=== PATIENT | male | born 1970 | race Hispanic/Latino ===

== ENCOUNTER → 2020-10-15 | Outpatient (CLI) | payer SELFPAY | LOC: M LABSMTC 11:01 | PROVIDERS: ATTEND Pediatrics | DX: Z20.828 Contact with and (suspected) exposure to other viral communicable diseases (principal) ==

== ENCOUNTER 2022-07-19 10:28 | Emergency (ER) | payer BC, OTHER ==
[2022-07-19] MEDS ORDERED: PSEUDOEPHEDRINE 30 MG TAB PO ONE (11:05)
[2022-07-19] MEDS ORDERED: PHENYLEPHRINE 10MG/ML 1ML VIAL (J2370 PER 1) XX ONE (12:00)
[2022-07-19 13:37] LABS: VENOUS BASE EXCESS -12.8 (-2.0-2.0); VENOUS HCO3 17.6 MEQ/L (23.0-27.0); VENOUS O2 SATURATION 90.7 % (60.0-80.0); VENOUS PARTIAL PRESSURE CO2 65.1 mmHg (38.0-50.0); VENOUS PARTIAL PRESSURE O2 78.3 mmHg (30.0-50.0); VENOUS PH 7.051 UNITS (7.330-7.430); VENOUS STANDARD HCO3 14.3 MEQ/L; VENOUS TOTAL CO2 19.6 MEQ/L (24.0-28.0)
[2022-07-19 14:45] VITALS: BP 133/83
== END 2022-07-19 15:12 | disposition home or self-care (01) ==
LOC: M ED 10:28
DX: N48.33 Priapism, drug-induced (principal)
CPT/HCPCS: 36415; 82803; 93041; 94760; 99285; J2370

== ENCOUNTER → 2022-12-16 | Outpatient (CLI) | payer BC, OTHER | LOC: M RAD 17:02 | PROVIDERS: ATTEND Physician Assistant Medical | DX: R06.02 Shortness of breath (principal) ==

== ENCOUNTER → 2023-01-21 | Outpatient (REF) | payer BC, OTHER ==
[2023-01-21 19:14] LABS: RSV AMPLIFICATION NEGATIVE (NEGATIVE)
== END ==
LOC: M LAB REF 18:00
PROVIDERS: ATTEND Physician Assistant
DX: R05.9 Cough, unspecified (principal)

== ENCOUNTER 2023-03-17 00:58 | Inpatient (IN) | payer BC, OTHER ==
[2023-03-17] VITALS (18 sets, daily range): BP systolic 120–162; BP diastolic 66–95
[~2023-03-17] VITALS: Ht 154.9 cm; Wt 65.1 kg
[2023-03-17 02:13] LABS: BASO % 0.2 % (0.0-1.0); EOS # 0.1 10^3/uL (0.0-0.5); EOS % 1.1 % (0.0-3.0); LYMPH # 2.3 10^3/uL (1.5-5.0); LYMPH % 28.7 % (24.0-44.0); MEAN CORPUSCULAR HEMOGLOBIN 13.8 pg (27.0-33.0); MEAN CORPUSCULAR VOLUME 59.8 fl (80.0-96.0); MONO # 0.5 10^3/uL (0.0-0.8); MONO % 6.1 % (2.0-8.0); NEUTROPHILS # 5.1 10^3/uL (1.5-8.5); NEUTROPHILS % 63.5 % (36.0-66.0); PLATELET COUNT, AUTOMATED 351 10^3/uL (150-450); RED BLOOD COUNT 2.54 10^6/uL (4.30-6.10); WHITE BLOOD COUNT 8.1 10^3/uL (4.0-10.0)
[2023-03-17 02:17] LABS: HEMATOCRIT 15.2 % (42.0-52.0); HEMOGLOBIN 3.5 g/dl (13.5-17.5)
[2023-03-17 02:19] LABS: ALBUMIN 3.5 G/DL (3.2-5.2); ALKALINE PHOSPHATASE 63 U/L (46-116); ALT/SGPT 17 U/L (7.0-40); AST/SGOT 23 U/L (<34); BILIRUBIN,TOTAL 0.5 MG/DL (0.3-1.2); BLOOD UREA NITROGEN 15 MG/DL (9-23); CALCIUM LEVEL 8.2 MG/DL (8.5-10.1); CARBON DIOXIDE LEVEL 24 MMOL/L (20-31); CHLORIDE LEVEL 107 MMOL/L (98-107); GLOMERULAR FILTRATION RATE > 60.0 (>56); GLUCOSE, FASTING 100 MG/DL (60-100); POTASSIUM SERUM 4.7 MMOL/L (3.5-5.1); SODIUM LEVEL 138 MMOL/L (136-145); TOTAL PROTEIN 6.2 G/DL (5.7-8.2)
[2023-03-17 03:45] LABS: BASO % 0.1 % (0.0-1.0); EOS # 0.1 10^3/uL (0.0-0.5); EOS % 1.6 % (0.0-3.0); LYMPH # 2.2 10^3/uL (1.5-5.0); MEAN CORPUSCULAR HEMOGLOBIN 13.6 pg (27.0-33.0); MEAN CORPUSCULAR HGB CONC 22.9 g/dl (32.0-36.5); MEAN CORPUSCULAR VOLUME 59.5 fl (80.0-96.0); MONO # 0.5 10^3/uL (0.0-0.8); MONO % 6.7 % (2.0-8.0); NEUTROPHILS # 4.2 10^3/uL (1.5-8.5); NEUTROPHILS % 59.9 % (36.0-66.0); PLATELET COUNT, AUTOMATED 330 10^3/uL (150-450); RED BLOOD COUNT 2.42 10^6/uL (4.30-6.10); WHITE BLOOD COUNT 7.1 10^3/uL (4.0-10.0)
[2023-03-17 03:50] LABS: HEMATOCRIT 14.4 % (42.0-52.0); HEMOGLOBIN 3.3 g/dl (13.5-17.5); INR 1.05; PROTHROMBIN TIME 13.9 SECONDS (12.5-14.5)
[2023-03-17] MEDS ORDERED: ISOVUE-370 76% 100ML VIAL As Ordered ONE (03:56)
[2023-03-17 04:03] LABS: CK-MB VALUE MASS < 1.0 NG/ML (<3.6)
[2023-03-17 04:05] LABS: BLOOD UREA NITROGEN 15 MG/DL (9-23); CALCIUM LEVEL 7.7 MG/DL (8.5-10.1); CARBON DIOXIDE LEVEL 23 MMOL/L (20-31); CHLORIDE LEVEL 108 MMOL/L (98-107); CPK CREATINE PHOSPHOKINASE 75 U/L (46-171); CREATININE FOR GFR 0.78 MG/DL (0.70-1.30); GLOMERULAR FILTRATION RATE > 60.0 (>56); GLUCOSE, FASTING 89 MG/DL (60-100); MB/CK RELATIVE INDEX 1.33 (< OR =4); POTASSIUM SERUM 4.1 MMOL/L (3.5-5.1); SODIUM LEVEL 139 MMOL/L (136-145)
[2023-03-17 05:53] LABS: LIPASE 64 U/L (12-53)
[2023-03-17] MEDS ORDERED: GLUCOSE 4GM CHEW TABLET PO PRN (07:25)
[2023-03-17] MEDS ORDERED: D5W/0.45% SODIUM CHLORIDE 1,000 ML IV SCH (07:25)
[2023-03-17] MEDS ORDERED: GLUCAGON INJ 1MG VIAL SC PRN (07:25)
[2023-03-17] MEDS ORDERED: DEXTROSE 50% 50ML SYRINGE IV PRN (07:25)
[2023-03-17] MEDS ORDERED: IBUP200C25 PO (08:13)
[2023-03-17 08:15] LABS: IRON (FE) 7 UG/DL (65-175); PERCENT SATURATION 1.9 % (19.7-50.0); TOTAL IRON BINDING CAPACITY 370 UG/DL (250-425)
[2023-03-17] MEDS ORDERED: HOME MED LIST COMPLETE! XX SCH (08:15)
[2023-03-17 09:03] LABS: CK-MB VALUE MASS < 1.0 NG/ML (<3.6)
[2023-03-17 09:05] LABS: CPK CREATINE PHOSPHOKINASE 62 U/L (46-171); MB/CK RELATIVE INDEX 1.61 (< OR =4)
[2023-03-17 12:13] LABS: HEMATOCRIT 23.8 % (42.0-52.0); HEMOGLOBIN 6.3 g/dl (13.5-17.5)
[2023-03-17] MEDS ORDERED: ONDANSETRON 4MG 2ML VIAL IV PRN (12:35)
[2023-03-17] MEDS ORDERED: ACETAMINOPHEN TAB 650MG DOSE (2X325MG) PO PRN (12:35)
[2023-03-17 18:42] LABS: HEMATOCRIT 28.7 % (42.0-52.0)
[2023-03-17 18:47] LABS: HEMOGLOBIN 8.3 g/dl (13.5-17.5)
[2023-03-17] MEDS ORDERED: diphenhydrAMINE 50MG/ML VIAL IV STA (19:09)
[2023-03-17 21:56] LABS: HEMOGLOBIN 8.3 g/dl (13.5-17.5)
[2023-03-18] VITALS (9 sets, daily range): BP systolic 111–137; BP diastolic 64–71
[2023-03-18 06:19] LABS: HEMATOCRIT 29.5 % (42.0-52.0); HEMOGLOBIN 8.5 g/dl (13.5-17.5)
[2023-03-18 06:40] LABS: BLOOD UREA NITROGEN 7 MG/DL (9-23); CALCIUM LEVEL 7.9 MG/DL (8.5-10.1); CARBON DIOXIDE LEVEL 24 MMOL/L (20-31); CHLORIDE LEVEL 109 MMOL/L (98-107); CREATININE FOR GFR 0.91 MG/DL (0.70-1.30); GLOMERULAR FILTRATION RATE > 60.0 (>56); GLUCOSE, FASTING 91 MG/DL (60-100); POTASSIUM SERUM 4.1 MMOL/L (3.5-5.1); SODIUM LEVEL 140 MMOL/L (136-145)
[2023-03-18 12:14] LABS: HEMATOCRIT 30.8 % (42.0-52.0); HEMOGLOBIN 8.6 g/dl (13.5-17.5)
[2023-03-18] MEDS ORDERED: BISACODYL 5MG TAB PO ONE (16:00)
[2023-03-18] MEDS ORDERED: GOLYTELY SOLN 4000 ML BTL PO ONE (18:00)
[2023-03-18 18:24] LABS: HEMATOCRIT 34.3 % (42.0-52.0); HEMOGLOBIN 9.4 g/dl (13.5-17.5)
[2023-03-18 23:51] LABS: HEMATOCRIT 33.2 % (42.0-52.0); HEMOGLOBIN 9.2 g/dl (13.5-17.5)
[2023-03-19 01:01] VITALS: BP 131/67
[2023-03-19 04:28] VITALS: BP 139/65
[2023-03-19] MEDS ORDERED: GOLYTELY SOLN 4000 ML BTL PO ONE (05:00)
[2023-03-19 06:10] LABS: HEMATOCRIT 32.5 % (42.0-52.0)
[2023-03-19 06:35] VITALS: BP 127/76
[2023-03-19 06:38] LABS: BLOOD UREA NITROGEN 7 MG/DL (9-23); CALCIUM LEVEL 8.7 MG/DL (8.5-10.1); CARBON DIOXIDE LEVEL 25 MMOL/L (20-31); CHLORIDE LEVEL 109 MMOL/L (98-107); CREATININE FOR GFR 0.91 MG/DL (0.70-1.30); GLOMERULAR FILTRATION RATE > 60.0 (>56); GLUCOSE, FASTING 84 MG/DL (60-100); POTASSIUM SERUM 3.9 MMOL/L (3.5-5.1); SODIUM LEVEL 141 MMOL/L (136-145)
[2023-03-19 07:55] VITALS: BP 145/63
[2023-03-19 12:20] LABS: HEMOGLOBIN 9.2 g/dl (13.5-17.5)
[2023-03-19] MEDS ORDERED: LIDOCAINE 2% 100MG/5ML SDV (FOR ANES.) As Ordered ONE (12:30)
[2023-03-19] MEDS ORDERED: propofoL 200 MG/20 ML VIAL As Ordered ONE ×2 (12:30→13:01)
[2023-03-19] MEDS ORDERED: fentaNYL 100 MCG/2 ML INJECTION As Ordered ONE (12:33)
[2023-03-19 14:00] VITALS: BP 138/74
[2023-03-19 14:32] VITALS: BP 143/79
== END 2023-03-19 16:16 | disposition home or self-care (01) | DRG 253 ==
LOC: M ED 00:58 → M ED INP 07:17 → M PCU 15:20
PROVIDERS: ADMIT General Practice; ATTEND General Practice
PROC: 30233N1 Transfusion of Nonautologous Red Blood Cells into Peripheral Vein, Percutaneous Approach (ICD-10-PCS; 2023-03-17)
PROC: 0DJD8ZZ Inspection of Lower Intestinal Tract, Via Natural or Artificial Opening Endoscopic (ICD-10-PCS; 2023-03-19)
PROC: 0DJ08ZZ Inspection of Upper Intestinal Tract, Via Natural or Artificial Opening Endoscopic (ICD-10-PCS; principal; 2023-03-19 13:45)
DX: K92.2 Gastrointestinal hemorrhage, unspecified (principal); R63.4 Abnormal weight loss; D62 Acute posthemorrhagic anemia; K64.2 Third degree hemorrhoids

== ENCOUNTER → 2023-03-24 | Outpatient (REF) | payer OTHER, BC ==
[~2023-03-24] MED LIST: IBUP200C25 PO
[2023-03-24 17:25] LABS: BASO # 0.1 10^3/uL (0.0-0.2); BASO % 0.7 % (0.0-1.0); EOS # 0.1 10^3/uL (0.0-0.5); EOS % 1.6 % (0.0-3.0); HEMATOCRIT 37.1 % (42.0-52.0); HEMOGLOBIN 10.1 g/dl (13.5-17.5); LYMPH # 1.7 10^3/uL (1.5-5.0); LYMPH % 23.5 % (24.0-44.0); MEAN CORPUSCULAR HEMOGLOBIN 20.5 pg (27.0-33.0); MEAN CORPUSCULAR HGB CONC 27.2 g/dl (32.0-36.5); MEAN CORPUSCULAR VOLUME 75.3 fl (80.0-96.0); MONO # 0.4 10^3/uL (0.0-0.8); MONO % 5.6 % (2.0-8.0); NEUTROPHILS % 68.2 % (36.0-66.0); PLATELET COUNT, AUTOMATED 354 10^3/uL (150-450); RED BLOOD COUNT 4.93 10^6/uL (4.30-6.10); WHITE BLOOD COUNT 7.3 10^3/uL (4.0-10.0)
[2023-03-24 17:46] LABS: TOTAL IRON BINDING CAPACITY 397 UG/DL (250-425)
[2023-03-24 17:48] LABS: ALBUMIN 3.7 G/DL (3.2-5.2); ALKALINE PHOSPHATASE 70 U/L (46-116); ALT/SGPT 65 U/L (7.0-40); AST/SGOT 57 U/L (<34); BILIRUBIN,TOTAL 0.9 MG/DL (0.3-1.2); BLOOD UREA NITROGEN 15 MG/DL (9-23); CALCIUM LEVEL 8.9 MG/DL (8.5-10.1); CARBON DIOXIDE LEVEL 25 MMOL/L (20-31); CHLORIDE LEVEL 108 MMOL/L (98-107); CHOLESTEROL LEVEL 117 MG/DL (<200); CHOLESTEROL RISK RATIO 3.15 (<5); CREATININE FOR GFR 0.81 MG/DL (0.70-1.30); GLOMERULAR FILTRATION RATE > 60.0 (>56); GLUCOSE, FASTING 68 MG/DL (60-100); HDL CHOLESTEROL 37.1 MG/DL (>40); IRON (FE) 42 UG/DL (65-175); LDL CHOLESTEROL 65.5 MG/DL (<100); NON-HDL-C 79.9 MG/DL; PERCENT SATURATION 10.6 % (19.7-50.0); POTASSIUM SERUM 4.6 MMOL/L (3.5-5.1); SODIUM LEVEL 139 MMOL/L (136-145); TOTAL PROTEIN 6.9 G/DL (5.7-8.2); TRIGLYCERIDES LEVEL 72 MG/DL (<150)
[2023-03-24 17:49] LABS: FERRITIN 14.8 NG/ML (10.5-307.3)
[2023-03-24 20:32] LABS: ANISOCYTOSIS 4+
[2023-03-24 20:33] LABS: MICROCYTOSIS 3+
[2023-03-24 20:34] LABS: PLATELET ESTIMATE NORMAL (NORMAL)
== END ==
LOC: M LAB REF 16:15
PROVIDERS: ATTEND Physician Assistant
DX: Z13.220 Encounter for screening for lipoid disorders (principal); Z13.1 Encounter for screening for diabetes mellitus

== ENCOUNTER → 2023-04-16 | Outpatient (REF) | payer OTHER, BC ==
[2023-04-16 17:51] LABS: BASO % 0.6 % (0.0-1.0); EOS # 0.3 10^3/uL (0.0-0.5); HEMATOCRIT 36.8 % (42.0-52.0); HEMOGLOBIN 10.6 g/dl (13.5-17.5); LYMPH # 1.8 10^3/uL (1.5-5.0); MEAN CORPUSCULAR HEMOGLOBIN 22.8 pg (27.0-33.0); MEAN CORPUSCULAR HGB CONC 28.8 g/dl (32.0-36.5); MEAN CORPUSCULAR VOLUME 79.3 fl (80.0-96.0); MONO # 0.5 10^3/uL (0.0-0.8); MONO % 8.3 % (2.0-8.0); NEUTROPHILS # 3.6 10^3/uL (1.5-8.5); NEUTROPHILS % 57.1 % (36.0-66.0); PLATELET COUNT, AUTOMATED 387 10^3/uL (150-450); RED BLOOD COUNT 4.64 10^6/uL (4.30-6.10); WHITE BLOOD COUNT 6.3 10^3/uL (4.0-10.0)
[2023-04-16 18:15] LABS: FERRITIN 5.5 NG/ML (10.5-307.3)
== END ==
LOC: M LAB REF 16:25
PROVIDERS: ATTEND Physician Assistant
DX: D50.9 Iron deficiency anemia, unspecified (principal)

== ENCOUNTER → 2023-04-30 | Outpatient (CLI) | payer BC, OTHER | LOC: M CARPUL 07:52 | PROVIDERS: ATTEND Physician Assistant | DX: I51.7 Cardiomegaly (principal); R94.31 Abnormal electrocardiogram [ECG] [EKG] ==

== ENCOUNTER → 2023-05-13 | Outpatient (REF) | payer BC, OTHER ==
[2023-05-13 18:03] LABS: BASO % 0.6 % (0.0-1.0); EOS # 0.1 10^3/uL (0.0-0.5); EOS % 1.9 % (0.0-3.0); HEMATOCRIT 35.5 % (42.0-52.0); HEMOGLOBIN 10.8 g/dl (13.5-17.5); LYMPH # 1.5 10^3/uL (1.5-5.0); LYMPH % 31.3 % (24.0-44.0); MEAN CORPUSCULAR HEMOGLOBIN 26.2 pg (27.0-33.0); MEAN CORPUSCULAR HGB CONC 30.4 g/dl (32.0-36.5); MONO # 0.4 10^3/uL (0.0-0.8); MONO % 7.5 % (2.0-8.0); NEUTROPHILS # 2.7 10^3/uL (1.5-8.5); NEUTROPHILS % 58.5 % (36.0-66.0); PLATELET COUNT, AUTOMATED 381 10^3/uL (150-450); RED BLOOD COUNT 4.13 10^6/uL (4.30-6.10); WHITE BLOOD COUNT 4.7 10^3/uL (4.0-10.0)
[2023-05-13 18:13] LABS: PERCENT SATURATION 7.8 % (19.7-50.0)
[2023-05-13 18:14] LABS: FERRITIN 64.6 NG/ML (10.5-307.3)
== END ==
LOC: M LAB REF 16:20
PROVIDERS: ATTEND Physician Assistant
DX: D50.9 Iron deficiency anemia, unspecified (principal)

== ENCOUNTER → 2023-08-25 | Outpatient (REF) | payer SELFPAY, OTHER ==
[~2023-08-25] MED LIST changes: +FERR325T19 PO
[2023-08-25 19:03] LABS: BASO % 0.7 % (0.0-1.0); EOS # 0.1 10^3/uL (0.0-0.5); EOS % 2.5 % (0.0-3.0); HEMATOCRIT 39.5 % (42.0-52.0); HEMOGLOBIN 13.1 g/dl (13.5-17.5); LYMPH # 2.4 10^3/uL (1.5-5.0); LYMPH % 43.4 % (24.0-44.0); MEAN CORPUSCULAR HEMOGLOBIN 29.5 pg (27.0-33.0); MEAN CORPUSCULAR HGB CONC 33.2 g/dl (32.0-36.5); MONO # 0.6 10^3/uL (0.0-0.8); MONO % 10.5 % (2.0-8.0); NEUTROPHILS # 2.2 10^3/uL (1.5-8.5); NEUTROPHILS % 40.4 % (36.0-66.0); PLATELET COUNT, AUTOMATED 352 10^3/uL (150-450); RED BLOOD COUNT 4.44 10^6/uL (4.30-6.10); WHITE BLOOD COUNT 5.6 10^3/uL (4.0-10.0)
[2023-08-26 02:12] LABS: PERCENT SATURATION 11.5 % (19.7-50.0)
== END ==
LOC: M LAB REF 16:27
PROVIDERS: ATTEND Pediatrics
DX: D50.9 Iron deficiency anemia, unspecified (principal)

== ENCOUNTER → 2023-09-09 | Outpatient (REF) | payer SELFPAY, OTHER ==
[2023-09-09 18:05] LABS: HDL CHOLESTEROL 48.9 MG/DL (>40); LDL CHOLESTEROL 87.1 MG/DL (<100); NON-HDL-C 98.1 MG/DL
[2023-09-09 18:09] LABS: THYROID STIMULATING HORMONE 3.094 uIU/ML (0.55-4.78)
== END ==
LOC: M LAB REF 16:20
PROVIDERS: ATTEND Pediatrics
DX: I34.0 Nonrheumatic mitral (valve) insufficiency (principal); R94.31 Abnormal electrocardiogram [ECG] [EKG]

== ENCOUNTER → 2023-11-21 | Outpatient (CLI) | payer BC, OTHER, SELFPAY | LOC: M CARPUL 09:15 | PROVIDERS: ATTEND Pediatrics | DX: I08.1 Rheumatic disorders of both mitral and tricuspid valves (principal) ==

== ENCOUNTER → 2024-01-12 | Outpatient (REF) | payer SELFPAY, OTHER ==
[2024-01-12 18:57] LABS: BASO % 0.5 % (0.0-1.0); EOS # 0.1 10^3/uL (0.0-0.5); EOS % 1.1 % (0.0-3.0); HEMATOCRIT 34.7 % (42.0-52.0); HEMOGLOBIN 10.7 g/dl (13.5-17.5); LYMPH # 1.2 10^3/uL (1.5-5.0); LYMPH % 17.7 % (24.0-44.0); MEAN CORPUSCULAR HEMOGLOBIN 26.3 pg (27.0-33.0); MEAN CORPUSCULAR HGB CONC 30.8 g/dl (32.0-36.5); MEAN CORPUSCULAR VOLUME 85.3 fl (80.0-96.0); MONO # 0.9 10^3/uL (0.0-0.8); NEUTROPHILS # 4.5 10^3/uL (1.5-8.5); NEUTROPHILS % 67.4 % (36.0-66.0); PLATELET COUNT, AUTOMATED 334 10^3/uL (150-450); RED BLOOD COUNT 4.07 10^6/uL (4.30-6.10); WHITE BLOOD COUNT 6.6 10^3/uL (4.0-10.0)
[2024-01-12 19:30] LABS: PERCENT SATURATION 3.7 % (19.7-50.0)
== END ==
LOC: M LAB REF 17:55
PROVIDERS: ATTEND Pediatrics
DX: D50.9 Iron deficiency anemia, unspecified (principal)

== ENCOUNTER 2024-02-13 05:56 | Day surgery (SDC) | payer BC, SELFPAY ==
[~2024-02-13] VITALS: Ht 152.4 cm; Wt 62.8 kg
[2024-02-13] MEDS ORDERED: LR 1,000 ML IV SCH (06:40)
[2024-02-13] MEDS ORDERED: ePHEDrine SULFATE 25 MG/5 ML(5MG/ML) SYRINGE As Ordered ONE (06:56)
[2024-02-13] MEDS ORDERED: propofoL 200 MG/20 ML VIAL As Ordered ONE (06:56)
[2024-02-13] MEDS ORDERED: SUGAMMADEX SODIUM 500 MG/5 ML VIAL (BRIDION) As Ordered ONE (06:56)
[2024-02-13] MEDS ORDERED: ONDANSETRON 4MG 2ML VIAL As Ordered ONE (06:56)
[2024-02-13] MEDS ORDERED: LIDOCAINE 2% 100MG/5ML SDV (FOR ANES.) As Ordered ONE (06:56)
[2024-02-13] MEDS ORDERED: ROCURONIUM BROMIDE 50MG/5ML VIAL As Ordered ONE (06:56)
[2024-02-13] MEDS ORDERED: MIDAZOLAM INJ 2MG/2ML VIAL As Ordered ONE (06:56)
[2024-02-13] MEDS ORDERED: PHENYLephrine 500MCG 5ML (100MCG/ML) SYRINGE As Ordered ONE (06:56)
[2024-02-13] MEDS ORDERED: fentaNYL 100 MCG/2 ML INJECTION As Ordered ONE (06:57)
[2024-02-13] MEDS: CelecoXIB 400 MG CAP PO ONE (07:32)
[2024-02-13] MEDS: ceFAZolin SOD 2 GM in IV 1 EA IV ONE (07:55)
[2024-02-13] MEDS: metroNIDAZOLE 500 MG in IV 1 EA IV ONE (07:59)
[2024-02-13] MEDS ORDERED: KETOROLAC 60MG 2ML VIAL As Ordered ONE (08:32)
[2024-02-13] MEDS ORDERED: ACETAMINOPHEN 1000MG 100ML IV BAG As Ordered ONE (08:40)
[2024-02-13] MEDS ORDERED: ONDANSETRON 4MG 2ML VIAL IV PRN (09:25)
[2024-02-13] MEDS ORDERED: fentaNYL 100 MCG/2 ML INJECTION IV PRN (09:25)
[2024-02-13] MEDS: oxyCODONE 5MG TAB PO PRN (09:41)
[2024-02-13] MEDS: MORPHINE 2 MG/ML 1ML VIAL IV PRN (09:41)
[2024-02-13 10:45] VITALS: BP 151/97; TEMP 97.1; O2SAT 100
== END 2024-02-13 11:24 | disposition home or self-care (01) ==
LOC: M SDC 05:56
PROVIDERS: ATTEND Surgery
DX: K64.8 Other hemorrhoids (principal); K64.4 Residual hemorrhoidal skin tags; D50.0 Iron deficiency anemia secondary to blood loss (chronic)
CPT/HCPCS: 46946; 88304; C9290; J0131; J0665; J0690; J1100; J1836; J1885; J2250; J2371; J2405; J3010

== ENCOUNTER 2024-02-16 08:14 | Emergency (ER) | payer BC ==
[~2024-02-16] VITALS: Ht 152.4 cm; Wt 51.2 kg
[2024-02-16 08:16] VITALS: BP 116/67; TEMP 96.9; O2SAT 99
[2024-02-16] MEDS ORDERED: HYDR-4571 (08:36)
== END 2024-02-16 09:00 | disposition left against medical advice (07) ==
LOC: M ED 08:14
DX: Z53.21 Procedure and treatment not carried out due to patient leaving prior to being seen by health care provider (principal)

== ENCOUNTER → 2024-10-05 | Outpatient (CLI) | payer BC ==
[~2024-10-05] MED LIST changes: +HYDR-4571
[2024-10-05 17:22] LABS: BASO % 0.4 % (0.0-1.0); EOS # 0.1 10^3/uL (0.0-0.5); EOS % 1.2 % (0.0-3.0); HEMATOCRIT 43.8 % (42.0-52.0); HEMOGLOBIN 14.4 g/dl (13.5-17.5); LYMPH # 2.5 10^3/uL (1.5-5.0); LYMPH % 32.5 % (24.0-44.0); MEAN CORPUSCULAR HEMOGLOBIN 29.2 pg (27.0-33.0); MEAN CORPUSCULAR HGB CONC 32.9 g/dl (32.0-36.5); MEAN CORPUSCULAR VOLUME 88.8 fl (80.0-96.0); MONO # 0.7 10^3/uL (0.0-0.8); MONO % 8.6 % (2.0-8.0); NEUTROPHILS # 4.5 10^3/uL (1.5-8.5); NEUTROPHILS % 56.8 % (36.0-66.0); PLATELET COUNT, AUTOMATED 294 10^3/uL (150-450); RED BLOOD COUNT 4.93 10^6/uL (4.30-6.10); WHITE BLOOD COUNT 7.8 10^3/uL (4.0-10.0)
[2024-10-05 17:31] LABS: ALBUMIN 3.5 G/DL (3.2-5.2); ALKALINE PHOSPHATASE 79 U/L (40-129); ALT/SGPT 22 U/L (7.0-40); AST/SGOT 21 U/L (<34); BILIRUBIN,TOTAL 0.6 MG/DL (0.3-1.2); BLOOD UREA NITROGEN 12 MG/DL (9-23); CALCIUM LEVEL 9.1 MG/DL (8.5-10.1); CARBON DIOXIDE LEVEL 26 MMOL/L (20-31); CHLORIDE LEVEL 108 MMOL/L (98-107); CHOLESTEROL LEVEL 173 MG/DL (<200); CREATININE FOR GFR 0.77 MG/DL (0.70-1.30); FERRITIN 13.6 NG/ML (10.5-307.3); GLOMERULAR FILTRATION RATE > 60.0 (>56); GLUCOSE, FASTING 84 MG/DL (60-100); HDL CHOLESTEROL 55.8 MG/DL (>40); IRON (FE) 187 UG/DL (65-175); LDL CHOLESTEROL 102.4 MG/DL (<100); NON-HDL-C 117.2 MG/DL; PERCENT SATURATION 52.1 % (19.7-50.0); POTASSIUM SERUM 4.2 MMOL/L (3.5-5.1); SODIUM LEVEL 138 MMOL/L (136-145); TOTAL IRON BINDING CAPACITY 359 UG/DL (250-425); TOTAL PROTEIN 7.1 G/DL (5.7-8.2); TRIGLYCERIDES LEVEL 74 MG/DL (<150)
[2024-10-10 19:27] LABS: TESTOSTERONE FREE (DIRECT) 74.3 pg/mL (35.0-155.0)
== END ==
LOC: M WUC 13:50
PROVIDERS: ATTEND Physician Assistant
DX: D50.9 Iron deficiency anemia, unspecified (principal); E66.3 Overweight; Z13.220 Encounter for screening for lipoid disorders; Z68.27 Body mass index [BMI] 27.0-27.9, adult